=== PATIENT | female | born 1990 | race Caucasian/White ===

== ENCOUNTER 2018-03-16 10:07 | Inpatient (IN) | END 2018-03-24 19:45 | disposition home or self-care (01) | DRG 766 ==

== ENCOUNTER 2018-12-13 15:24 | Observation (INO) | payer MEDICAID ==
[~2018-12-13] VITALS: Ht 162.6 cm; Wt 67.2 kg
[~2018-12-13 15:24] MED LIST: PREN-93 PO
--- NOTE | 2018-12-13 17:56 | ERD ---
ER Documentation Chief Complaint Chief Complaint SOB, palpitations [id number], gen weakness [id number]. denies anxiety. no CP HPI 28-year-old female with a history of HELLP syndrome status post 03/16/2018 presents to the ED complaining of shortness of breath and palpitations. Patient was in her usual health until approximately 1 month ago when she began to experience persistent palpitations and exertional dyspnea. Denies chest pain. No leg pain or swelling. Denies headache, visual changes, focal weakness or numbness. No abdominal pain, nausea or vomiting. No relieving or exacerbating factors. No anorexia, weight loss, night sweats, fevers or chills. Denies anxiety or depression. ROS All systems reviewed and are negative except as per history of present illness. Medications Home Meds Discontinued Reported Medications Vit No.124/Iron/FA ( Vitamin Tablet) 1 Each Tablet, 1 EACH PO DAILY, TAB 03/16/18 Allergies Allergies: Coded Allergies: acetaminophen (Unverified Allergy, Intermediate, RASH, 12/13/18) PMhx/Soc Reviewed in chart. As per HPI. History of Surgery: Yes (S/p ) Anesthesia Reaction: No Hx Neurological Disorder: No Hx Respiratory Disorders: No Hx Cardiac Disorders: No Hx Psychiatric Problems: No Hx Miscellaneous Medical Probl: Yes (HELLP syndrome) Hx Alcohol Use: No Hx Substance Use: No Hx Tobacco Use: No FmHx No stroke or cancer Physical Exam Vitals Vital Signs Date Temp Pulse Resp B/P (MAP) Pulse Ox O2 O2 Flow FiO2 Time Delivery Rate 12/13/18 98.7 114 15 142/91 99 Room Air 20:30 (108) 12/13/18 98.7 107 15 139/65 99 Room Air 18:30 (89) 12/13/18 98.7 145 22 154/88 99 15:27 (110) Physical Exam Const: Alert, moderate distress. Head: Atraumatic Eyes: Pupils equal reactive to light, extraocular movements are intact. Normal Conjunctiva. No nystagmus. ENT: Normal External Ears, Nose and Mouth. Neck: Full range of motion. No JVD. No meningismus. Resp: Breath sounds are equal and clear to auscultation bilaterally Cardio: Tachycardic. Regular rate and rhythm, no murmurs, gallops or rubs. Abd: Soft, non tender, non distended. Normal bowel sounds Skin: No petechiae or rashes Back: No midline or flank tenderness Ext: No cyanosis, or edema. No calf swelling or tenderness. Neur: Awake and alert. No focal deficit observed. Psych: Normal Mood and Affect. Patient does not appear anxious or depressed. Result Diagram: 12/14/18 0505 12/14/18 0505 Results 24 hrs Laboratory Tests Test 12/13/18 18:22 12/13/18 18:28 12/13/18 20:58 Thyroid Stimulating < 0.015 MIU/L < 0.015 MIU/L Hormone (TSH) White Blood Count 6.9 10^3/ul Red Blood Count 4.57 10^6/ul Hemoglobin 13.8 g/dl Hematocrit 41.2 % Mean Corpuscular Volume 90.2 fl Mean Corpuscular Hemoglobin 30.2 pg Mean Corpuscular 33.5 g/dl Hemoglobin Concent Red Cell Distribution Width 11.3 % Platelet Count 241 10^3/UL Mean Platelet Volume 10.8 fl Immature Granulocytes % 0.100 % Neutrophils % 64.0 % Lymphocytes % 23.7 % Monocytes % 11.5 % Eosinophils % 0.4 % Basophils % 0.3 % Nucleated Red Blood Cells % 0.0 /100WBC Immature Granulocytes # 0.010 10^3/ul Neutrophils # 4.4 10^3/ul Lymphocytes # 1.6 10^3/ul Monocytes # 0.8 10^3/ul Eosinophils # 0.0 10^3/ul Basophils # 0.0 10^3/ul Nucleated Red Blood Cells # 0.0 10^3/ul Sodium Level 143 mmol/L Potassium Level 3.6 mmol/L Chloride Level 103 mmol/L Carbon Dioxide Level 27 mmol/L Anion Gap 13 Blood Urea Nitrogen 11 mg/dl Creatinine 0.29 mg/dl Est Glomerular Filtrat > 60 mL/min Rate mL/min Glucose Level 106 mg/dl Calcium Level 9.3 mg/dl Total Bilirubin 0.5 mg/dl Direct Bilirubin 0.00 mg/dl Indirect Bilirubin 0.5 mg/dl Aspartate Amino 38 IU/L Transf (AST/SGOT) Alanine 47 IU/L Aminotransferase (ALT/SGPT) Alkaline Phosphatase 83 IU/L Creatine Kinase 69 IU/L Creatine Kinase Index 0.8 Creatinine Kinase MB (Mass) 0.52 ng/ml Troponin I < 0.012 ng/ml B-Type Natriuretic Peptide 220 PG/ML Total Protein 7.4 g/dl Albumin 4.0 g/dl Globulin 3.40 g/dl Albumin/Globulin Ratio 1.17 Free Thyroxine Index 13.94 ug/ml Thyroxine (T4) > 24.9 ug/dl Triiodothyronine (T3) Uptake 56.0 % Current Medications Medications Dose Sig/Mike Start Time Status Last (Trade) Ordered Route PRN Stop Time Admin Dose Reason Admin IV Flush 10 ml STK-MED 12/13/18 DC 12/13/18 (NS 10 ml) ONCE .ROUTE 19:51 20:04 12/13/18 19:52 Sodium 100 ml @ ud STK-MED 12/13/18 DC 12/13/18 Chloride ONCE .ROUTE 19:51 20:04 12/13/18 19:52 Iohexol 150 ml STK-MED 12/13/18 DC 12/13/18 (Omnipaque ONCE .ROUTE 19:51 20:05 300mg/ ml) 12/13/18 19:52 Iohexol 100 ml @ ud STK-MED 12/13/18 DC ONCE .ROUTE 19:51 12/13/18 19:52 Sodium 500 ml @ Q1H STAT 12/13/18 DC 12/13/18 Chloride 500 mls/hr IV 21:29 21:42 12/13/18 22:28 Procedures/MDM DOCUMENTS REVIEWED: ED nurse, prior records EKG: Time: 1531. Sinus tachycardia. Ventricular rate 130. Normal UT and QRS. No acute ST segment elevation depression. No ectopy. My Interpretation IMAGING: Chest AP portable. The cardiac silhouette is normal. The costophrenic angles are clear. No acute infiltrates. CT pulmonary angiogram: No evidence of pulmonary embolism. Venous Doppler lower extremities are negative for deep venous thrombosis. MEDICAL DECISION MAKIN-year-old female with a history of HELLP syndrome status post 03/16/2018 presents to the ED complaining of shortness of breath and palpitations. CBC to evaluate for anemia, leukocytosis and thrombocytopenia is unremarkable. Chemistry reveals no evidence of electrolyte abnormalities or renal insufficiency. Chest x-ray to evaluate for effusion, infiltrate and congestive heart failure was negative. CT pulmonary angiogram is negative for pulmonary embolism. Venous Doppler lower extremity negative for deep vein thrombosis. EKG reveals sinus tachycardia without ischemic changes. TSH is undetectable consistent with hyperthyroidism. Presentation consistent with thyrotoxicosis without signs of thyroid storm. Methimazole and propanolol ordered by the admitting physician. Admit to telemetry for further evaluation and management. PATIENT CARE TRANSITIONED: Time: 22:24, Dr. Scherer Counseled patient regarding diagnosis, diagnostic results and plan for admission. Departure Diagnosis: Primary Impression: Palpitations Additional Impressions: Thyrotoxicosis Thyrotoxicosis type: unspecified thyrotoxicosis type Thyrotoxic crisis or storm presence: without thyrotoxic crisis or storm Qualified Codes: E05.90 - Thyrotoxicosis, unspecified without thyrotoxic crisis or storm Hyperthyroidism Condition: Serious STEF QIU MD Dec 13, 2018 17:56
[2018-12-13] MEDS ORDERED: IOHEXOL 100 ML ONE (19:51)
[2018-12-13] MEDS ORDERED: SOD CHLORIDE 0.9% 100 ML ONE (19:51)
[2018-12-13] MEDS ORDERED: IOHEXOL 300MG/ML 150 ML BTL ONE (19:51)
[2018-12-13] MEDS ORDERED: SOD CHLORIDE 0.9% 500 ML IV STA (21:29)
[2018-12-13] MEDS ORDERED: ONDANSETRON 4 MG INJ IV PRN ×2 (22:30→23:00)
[2018-12-13] MEDS ORDERED: METHIMAZOLE 5 MG TAB PO STA (22:40)
--- NOTE | 2018-12-13 22:50 | HP ---
Date/Time of Note Date/Time of Note DATE: 12/13/18 TIME: 22:50 Assessment/Plan VTE Prophylaxis Pharmacological prophylaxis: LMWH Lines/Catheters IV Catheter Type (from Nrs): Saline Lock Assessment/Plan Assessment/Plan 28-year-old female with palpitations of 1 months duration secondary to thyrotoxicosis PLAN Will start patient on propranolol and methimazole Check free T4 Thyroid ultrasound Endocrinology consult Result Diagram: 12/13/18182712/13/188 Results 24hrs Laboratory Tests Test 12/13/18 18:22 12/13/18 18:28 Thyroid Stimulating Hormone (TSH) < 0.015 L White Blood Count 6.9 # Red Blood Count 4.57 # Hemoglobin 13.8 # Hematocrit 41.2 # Mean Corpuscular Volume 90.2 Mean Corpuscular Hemoglobin 30.2 Mean Corpuscular Hemoglobin Concent 33.5 Red Cell Distribution Width 11.3 #L Platelet Count 241 # Mean Platelet Volume 10.8 H Immature Granulocytes % 0.100 Neutrophils % 64.0 Lymphocytes % 23.7 Monocytes % 11.5 H Eosinophils % 0.4 Basophils % 0.3 Nucleated Red Blood Cells % 0.0 Immature Granulocytes # 0.010 Neutrophils # 4.4 Lymphocytes # 1.6 Monocytes # 0.8 Eosinophils # 0.0 Basophils # 0.0 Nucleated Red Blood Cells # 0.0 Sodium Level 143 Potassium Level 3.6 Chloride Level 103 Carbon Dioxide Level 27 Anion Gap 13 Blood Urea Nitrogen 11 Creatinine 0.29 L Est Glomerular Filtrat Rate mL/min > 60 Glucose Level 106 Calcium Level 9.3 Total Bilirubin 0.5 Direct Bilirubin 0.00 Indirect Bilirubin 0.5 Aspartate Amino Transf (AST/SGOT) 38 Alanine Aminotransferase (ALT/SGPT) 47 Alkaline Phosphatase 83 Creatine Kinase 69 Creatine Kinase Index 0.8 Creatinine Kinase MB (Mass) 0.52 Troponin I < 0.012 B-Type Natriuretic Peptide 220 H Total Protein 7.4 Albumin 4.0 Globulin 3.40 H Albumin/Globulin Ratio 1.17 HPI/ROS Admit Date/Time Admit Date/Time Hx of Present Illness This is a 28-year-old female with a history of help syndrome diagnosed in February of last year status post who presented to ER with palpitations over 1 months duration. Denies chest pain. When presented to ER, heart rate was 145. Labs shows undetectable TSH. PMH/Family/Social Past Medical History Medical History: other Medications Current Medications Ondansetron HCl (Zofran Inj) 4 mg ER BRIDGE PRN IV NAUSEA AND/OR VOMITING; Start 12/13/18 at 22:30; Stop 12/14/18 at 22:29 IV Flush (NS 3 ml) 3 ml PER PROTOCOL IV ; Start 12/13/18 at 23:00; Status UNV Ondansetron HCl (Zofran Inj) 4 mg Q6H PRN IV NAUSEA AND/OR VOMITING; Start 12/13/18 at 23:00; Status UNV Methimazole (Tapazole) 10 mg ONCE STAT PO ; Start 12/13/18 at 22:40; Stop 12/13/18 at 22:41; Status UNV Propranolol HCl (Inderal) 20 mg ONCE ONCE PO ; Start 12/13/18 at 23:00; Stop 12/13/18 at 23:01; Status UNV Coded Allergies: acetaminophen (Unverified Allergy, Intermediate, RASH, 12/13/18) Past Surgical History Past Surgical Hx: other Family History Significant Family History: no pertinent family hx Social History Alcohol Use: other Smoking Status: Unknown if ever smoked Drug Use: other Exam/Review of Systems Vital Signs Vitals Vital Signs Date Temp Pulse Resp B/P (MAP) Pulse Ox O2 O2 Flow FiO2 Time Delivery Rate 12/13/18 98.7 104 19 132/70 100 Room Air 22:35 (90) Exam Constitutional: alert, oriented, well developed, other Head: normocephalic, atraumatic Respiratory: normal air movement Cardiovascular: regular rate and rhythm Gastrointestinal: soft Extremities: normal pulses AGNES SOW MD Dec 13, 2018 22:50
[2018-12-13] MEDS ORDERED: PROPRANOLOL 20 MG TAB PO ONE (23:00)
[2018-12-13] MEDS ORDERED: NACL 0.9% 3 ML SYG IV SCH (23:00)
[2018-12-14] VITALS (11 sets, daily range): BP systolic 118–149; BP diastolic 62–77; PULSE 87–110; RESP 16–20; Ht 162.6 cm; Wt 67.2 kg
--- NOTE | 2018-12-14 14:36 | PN ---
Date/Time of Note Date/Time of Note DATE: 12/14/18 TIME: 14:23 Assessment/Plan VTE Prophylaxis Risk score (from Ns)>0 risk: 0 SCD applied (from Ns): Yes Pharmacological prophylaxis: other Pharm contraindication: low risk/ambulating Lines/Catheters IV Catheter Type (from Nrs): Saline Lock Urinary Cath still in place: No Assessment/Plan Assessment/Plan 1. Hyperthyroidism, consider Grave's disease, follow up with endocrinology 2. Sinus tachycardia, hyperthyroidism related, on Inderal Result Diagram: 12/14/18 0505 12/14/18 0505 Results 24hrs Laboratory Tests Test 12/13/18 18:22 12/13/18 18:28 12/13/18 20:58 12/14/18 05:05 Thyroid Stimulating < 0.015 L < 0.015 L Hormone (TSH) White Blood Count 6.9 # 6.0 Red Blood Count 4.57 # 4.37 Hemoglobin 13.8 # 13.2 Hematocrit 41.2 # 39.8 Mean Corpuscular 90.2 91.1 Volume Mean Corpuscular 30.2 30.2 Hemoglobin Mean Corpuscular 33.5 33.2 Hemoglobin Concent Red Cell 11.3 #L 11.3 L Distribution Width Platelet Count 241 # 226 Mean Platelet Volume 10.8 H 11.7 H Immature 0.100 0.500 H Granulocytes % Neutrophils % 64.0 53.4 Lymphocytes % 23.7 30.7 Monocytes % 11.5 H 13.7 H Eosinophils % 0.4 1.5 Basophils % 0.3 0.2 Nucleated Red Blood 0.0 0.0 Cells % Immature 0.010 0.030 Granulocytes # Neutrophils # 4.4 3.2 Lymphocytes # 1.6 1.8 Monocytes # 0.8 0.8 Eosinophils # 0.0 0.1 Basophils # 0.0 0.0 Nucleated Red Blood 0.0 0.0 Cells # Sodium Level 143 140 Potassium Level 3.6 4.7 Chloride Level 103 105 Carbon Dioxide Level 27 23 Anion Gap 13 12 Blood Urea Nitrogen 11 10 Creatinine 0.29 L 0.30 L Est Glomerular > 60 > 60 Filtrat Rate mL/min Glucose Level 106 81 Calcium Level 9.3 9.9 Total Bilirubin 0.5 1.1 Direct Bilirubin 0.00 0.00 Indirect Bilirubin 0.5 1.1 Aspartate Amino 38 47 H Transf (AST/SGOT) Alanine 47 45 Aminotransferase (AL T/SGPT) Alkaline Phosphatase 83 61 Creatine Kinase 69 Creatine Kinase 0.8 Index Creatinine Kinase MB 0.52 (Mass) Troponin I < 0.012 B-Type Natriuretic 220 H Peptide Total Protein 7.4 6.6 Albumin 4.0 3.5 Globulin 3.40 H 3.10 Albumin/Globulin 1.17 1.12 Ratio Free Thyroxine Index 13.94 H Thyroxine (T4) > 24.9 H Triiodothyronine 56.0 H (T3) Uptake Magnesium Level 1.8 Triglycerides Level 69 Cholesterol Level 122 LDL Cholesterol, 71 Calculated HDL Cholesterol 37 Cholesterol/HDL 3.2 Ratio Subjective 24 Hr Interval Summary Free Text/Dictation less palpitation Exam/Review of Systems Vital Signs Vitals Vital Signs Date Temp Pulse Resp B/P (MAP) Pulse Ox O2 O2 Flow FiO2 Time Delivery Rate 12/14/18 100 12:41 12/14/18 98.2 18 149/77 97 11:35 (101) 12/14/18 Room Air 04:38 Intake and Output 12/13/18 12/13/18 12/14/18 1515:00 23:00 07:00 IntakeIntake Total 0 ml BalanceBalance 0 ml Exam Constitutional: alert, oriented, well developed Psych: no complaints, nl mood/affect Head: normocephalic, atraumatic Eyes: nl conjunctiva, EOMI, nl lids ENMT: nl external ears & nose, nl lips & teeth, nl nasal mucosa & septum Neck: supple, non-tender Respiratory: clear to auscultation, normal air movement; No congested cough, No crackles/rales, No diminished breath sounds, No intercostal retraction, No labored breathing, No respirations, No tactile fremitus, No wheezing, No other Cardiovascular: regular rate and rhythm, nl pulses; No bruits, No diastolic murmur, No edema, No gallop, No irregular rhythm, No jugular venous distention (JVD), No murmurs/extra sounds, No rub, No systolic murmur, No S3, No S4, No other Gastrointestinal: soft, nl liver, spleen Musculoskeletal: nl extremities to inspection, nl gait and stance; No joint tenderness, No muscle tone, No muscle weakness, No range of motion, No spine non-tender, No swelling, No other Extremities: normal pulses; No calf tenderness, No cyanosis, No clubbing, No edema, No pitting pedal edema, No palpable cord, No tenderness, No other Neurological: SPECIAL EDUCATION PARAPROFESSIONAL II-XII intact, nl mental status, nl speech, nl strength Skin: nl turgor Medications Medications Current Medications Ondansetron HCl (Zofran Inj) 4 mg ER BRIDGE PRN IV NAUSEA AND/OR VOMITING; Start 12/13/18 at 22:30; Stop 12/14/18 at 22:29 IV Flush (NS 3 ml) 3 ml PER PROTOCOL IV ; Start 12/13/18 at 23:00 Ondansetron HCl (Zofran Inj) 4 mg Q6H PRN IV NAUSEA AND/OR VOMITING; Start 12/13/18 at 23:00 FATOU CEVALLOS MD Dec 14, 2018 14:34
--- NOTE | 2018-12-14 15:18 | CONS ---
Date/Time of Note Date/Time of Note DATE: 12/14/18 TIME: 15:09 Assessment/Plan Assessment/Plan Problems: (1) Palpitations Status: Acute Comment: Propanolol 10 mg qid to goal HR of 80-100 bpm. Ok for d/c when cleared by primary team. (2) Hyperthyroidism Status: Acute Comment: Methimazole 20 mg po daily. Ok for d/c when cleared by primary team. (3) Graves disease Status: Chronic Comment: The diagnosis is clearly Graves disease. Ultrasound showing only heterogeneous gland, no nodules. No glandular tenderness or pain. Antibody studies are unnecessary at this point to make the diagnosis. Pt. should be followed at regular intervals as outpatient to monitor thyroid function and have methimazole dose weaned. If after 2 years the disease has not gone into remission, would then plan definitive therapy (surgery vs. radioactive iodine). Result Diagram: 12/14/18 0505 12/14/18 0505 Results 24hrs Laboratory Tests Test 12/13/18 18:22 12/13/18 18:28 12/13/18 20:58 12/14/18 05:05 Thyroid Stimulating < 0.015 L < 0.015 L Hormone (TSH) White Blood Count 6.9 # 6.0 Red Blood Count 4.57 # 4.37 Hemoglobin 13.8 # 13.2 Hematocrit 41.2 # 39.8 Mean Corpuscular 90.2 91.1 Volume Mean Corpuscular 30.2 30.2 Hemoglobin Mean Corpuscular 33.5 33.2 Hemoglobin Concent Red Cell 11.3 #L 11.3 L Distribution Width Platelet Count 241 # 226 Mean Platelet Volume 10.8 H 11.7 H Immature 0.100 0.500 H Granulocytes % Neutrophils % 64.0 53.4 Lymphocytes % 23.7 30.7 Monocytes % 11.5 H 13.7 H Eosinophils % 0.4 1.5 Basophils % 0.3 0.2 Nucleated Red Blood 0.0 0.0 Cells % Immature 0.010 0.030 Granulocytes # Neutrophils # 4.4 3.2 Lymphocytes # 1.6 1.8 Monocytes # 0.8 0.8 Eosinophils # 0.0 0.1 Basophils # 0.0 0.0 Nucleated Red Blood 0.0 0.0 Cells # Sodium Level 143 140 Potassium Level 3.6 4.7 Chloride Level 103 105 Carbon Dioxide Level 27 23 Anion Gap 13 12 Blood Urea Nitrogen 11 10 Creatinine 0.29 L 0.30 L Est Glomerular > 60 > 60 Filtrat Rate mL/min Glucose Level 106 81 Calcium Level 9.3 9.9 Total Bilirubin 0.5 1.1 Direct Bilirubin 0.00 0.00 Indirect Bilirubin 0.5 1.1 Aspartate Amino 38 47 H Transf (AST/SGOT) Alanine 47 45 Aminotransferase (AL T/SGPT) Alkaline Phosphatase 83 61 Creatine Kinase 69 Creatine Kinase 0.8 Index Creatinine Kinase MB 0.52 (Mass) Troponin I < 0.012 B-Type Natriuretic 220 H Peptide Total Protein 7.4 6.6 Albumin 4.0 3.5 Globulin 3.40 H 3.10 Albumin/Globulin 1.17 1.12 Ratio Free Thyroxine Index 13.94 H Thyroxine (T4) > 24.9 H Triiodothyronine 56.0 H (T3) Uptake Magnesium Level 1.8 Triglycerides Level 69 Cholesterol Level 122 LDL Cholesterol, 71 Calculated HDL Cholesterol 37 Cholesterol/HDL 3.2 Ratio Consultation Date/Type/Reason Admit Date/Time 12/13/2018 @ 2200 Date of Consultation: Dec 14, 2018 Type of Consult Endocrinology Reason for Consultation Thyrotoxicosis Requesting Provider: TALA GASTON MD Hx of Present Illness 28 y/o H F w/ h/o preeclampsia in [facility] until 1 m. ago when she began to experience palpitations, tremors, sweats. (+) weight loss but only a few pounds. (+) intermittent insomnia. Yesterday w/ increasing feeling of heart racing and SOB. Came to ER where HR was in 140's. Found to be in thyrotoxicosis w/ TSH < 0.01 and TT4 > upper limit of detection. Rec'ed single dose methimazole 10 mg and propranolol 20 mg and was admitted. Constitutional: no complaints, diaphoresis Eyes: no complaints ENT: no complaints Respiratory: shortness of breath Cardiovascular: palpitations Gastrointestinal: no complaints Genitourinary: no complaints Musculoskeletal: no complaints Neurologic: other (tremors) Endocrine: temp intolerance (heat intolerance) Past Medical History Medical History: other (HELLP syndrome) Medications Current Medications Ondansetron HCl (Zofran Inj) 4 mg ER BRIDGE PRN IV NAUSEA AND/OR VOMITING; Start 12/13/18 at 22:30; Stop 12/14/18 at 22:29 IV Flush (NS 3 ml) 3 ml PER PROTOCOL IV ; Start 12/13/18 at 23:00 Ondansetron HCl (Zofran Inj) 4 mg Q6H PRN IV NAUSEA AND/OR VOMITING; Start 12/13/18 at 23:00 Methimazole (Tapazole) 20 mg DAILY PO ; Start 12/14/18 at 14:30 Propranolol HCl (Inderal) 10 mg QID PO ; Start 12/14/18 at 17:00 Allergies: Coded Allergies: acetaminophen (Unverified Allergy, Intermediate, RASH, 12/13/18) Past Surgical History Past Surgical Hx: other () Family History Significant Family History: vascular disease (stroke in mother) Social History b. Zafar, [place], in [facility] 9 y, unemployed, has common-law partner, 2 children Alcohol Use: rarely Smoking Status: Never smoker Drug Use: none Exam/Review of Systems Vital Signs Vitals VS - Last 72 Hours, by Label Date Temp Pulse Resp B/P (MAP) Pulse Ox O2 O2 Flow FiO2 Time Delivery Rate 12/14/18 100 12:41 12/14/18 98.2 110 18 149/77 97 11:35 (101) 12/14/18 92 08:25 12/14/18 98.1 91 18 118/66 99 07:45 (83) 12/14/18 98.1 94 16 126/62 96 Room Air 04:38 (83) 12/14/18 108 04:00 12/14/18 98.1 93 16 131/67 98 Room Air 01:25 (88) 12/14/18 90 01:01 12/14/18 97 20 96/58 (71) 99 Room Air 00:43 12/13/18 98.7 104 19 132/70 100 Room Air 22:35 (90) 12/13/18 98.7 114 15 142/91 99 Room Air 20:30 (108) 12/13/18 98.7 107 15 139/65 99 Room Air 18:30 (89) 12/13/18 98.7 145 22 154/88 99 15:27 (110) Vital Signs Date Temp Pulse Resp B/P (MAP) Pulse Ox O2 O2 Flow FiO2 Time Delivery Rate 12/14/18 100 12:41 12/14/18 98.2 18 149/77 97 11:35 (101) 12/14/18 Room Air 04:38 Intake and Output 12/13/18 12/13/18 12/14/18 1515:00 23:00 07:00 IntakeIntake Total 0 ml BalanceBalance 0 ml Exam Constitutional: alert, oriented, well developed Psych: no complaints, nl mood/affect Eyes: nl conjunctiva, EOMI, nl lids, nl sclera, PERRL ENMT: nl external ears & nose, mucosa pink and moist Neck: supple, non-tender, bruits, thyromegaly; No masses Respiratory: clear to auscultation, normal air movement Cardiovascular: regular rate and rhythm, nl pulses; No edema, No murmurs/extra sounds, No rub Gastrointestinal: soft, nl liver, spleen, non-tender, bowel sounds; No mass, No rebound or guarding Musculoskeletal: nl extremities to inspection Extremities: normal pulses; No cyanosis, No clubbing, No edema Neurological: other ((+) tremor) Medications Medications Current Medications Ondansetron HCl (Zofran Inj) 4 mg ER BRIDGE PRN IV NAUSEA AND/OR VOMITING; Start 12/13/18 at 22:30; Stop 12/14/18 at 22:29 IV Flush (NS 3 ml) 3 ml PER PROTOCOL IV ; Start 12/13/18 at 23:00 Ondansetron HCl (Zofran Inj) 4 mg Q6H PRN IV NAUSEA AND/OR VOMITING; Start 12/13/18 at 23:00 Methimazole (Tapazole) 20 mg DAILY PO ; Start 12/14/18 at 14:30 Propranolol HCl (Inderal) 10 mg QID PO ; Start 12/14/18 at 17:00 JEANCARLOS HEARN MD Dec 14, 2018 15:18
[2018-12-14] MEDS: METHIMAZOLE 5 MG TAB PO SCH (15:44)
[2018-12-14] MEDS: PROPRANOLOL 10 MG TAB PO SCH ×2 (16:30→20:25)
[2018-12-15] VITALS: BP 119/58; PULSE 90; PULSE 93; RESP 20
[2018-12-15 04:00] VITALS: BP 116/57; PULSE 85; PULSE 93; RESP 20
[2018-12-15 07:38] VITALS: BP 119/59; PULSE 85; RESP 18
[2018-12-15 08:00] VITALS: PULSE 97
[2018-12-15] MEDS: METHIMAZOLE 5 MG TAB PO SCH (09:10)
[2018-12-15] MEDS: PROPRANOLOL 10 MG TAB PO SCH ×2 (09:10→13:11)
[2018-12-15 11:09] VITALS: BP 120/56; PULSE 78; RESP 18
[2018-12-15 12:00] VITALS: PULSE 82
[2018-12-15] MEDS ORDERED: METH-493 PO (12:18)
[2018-12-15] MEDS ORDERED: PROP10TA6 PO (12:18)
--- NOTE | 2018-12-15 12:48 | PDOCDIS ---
Discharge Instructions DIAGNOSIS Discharge Diagnosis Graves disease/hyperthyroidism CONDITION [id number] Patient Condition: [id number] Stable FOLLOW UP/APPOINTMENTS Follow-up Plan Make an appointment to see a doctor in the next month. It is important to have your thyroid levels checked. Take your medications everyday as prescribed. Return to the hospital if you have any concerning symptoms ANGELES MORRIS MD Dec 15, 2018 12:48
--- NOTE | 2018-12-15 12:57 | DS ---
Date/Time of Note Date/Time of Note DATE: 12/15/18 TIME: 12:55 Discharge Summary Admission/Discharge Info Admit Date/Time Dec 13, 2018 at 22:26 Discharge Date/Time Discharge Diagnosis Graves disease/hyperthyroidism Patient Condition: Stable Hospital Course Patient with tachycarida and SOB. CT-A of chest was performed and normal. Found to be in hyperthyroid state. Started on methimazole and propranolol and symptoms improved. She was seen by endocrinology who diagnosed Graves disease. She was encouraged to continue propranolol and methimazole as an outpatient and follow up at [facility]. Home Meds Discontinued Reported Medications Vit No.124/Iron/FA ( Vitamin Tablet) 1 Each Tablet, 1 EACH PO DAILY, TAB 03/16/18 Follow-up Plan Make an appointment to see a doctor in the next month. It is important to have your thyroid levels checked. Take your medications everyday as prescribed. Return to the hospital if you have any concerning symptoms Primary Care Provider Not On Staff Doctor Pending Labs Laboratory Tests Test 12/15/18 04:53 White Blood Count 5.9 10^3/ul (4.8-10.8) Red Blood Count 4.20 10^6/ul (4.20-5.40) Hemoglobin 12.8 g/dl (12.0-16.0) Hematocrit 38.4 % (37.0-47.0) Mean Corpuscular Volume 91.4 fl (82.0-101.0) Mean Corpuscular Hemoglobin 30.5 pg (29.0-33.0) Mean Corpuscular Hemoglobin Concent 33.3 g/dl (32.0-37.0) Red Cell Distribution Width 11.2 % (11.5-14.5) Platelet Count 231 10^3/UL (140-415) Mean Platelet Volume 11.7 fl (7.4-10.4) Immature Granulocytes % 0.200 % (0.001-0.429) Neutrophils % 46.0 % (39.0-77.0) Lymphocytes % 36.4 % (15.0-51.0) Monocytes % 15.2 % (0.0-11.0) Eosinophils % 2.0 % (0.0-7.0) Basophils % 0.2 % (0.0-2.0) Nucleated Red Blood Cells % 0.0 /100WBC (0.0-0.0) Immature Granulocytes # 0.010 10^3/ul (0.0-0.031) Neutrophils # 2.7 10^3/ul (1.6-7.5) Lymphocytes # 2.2 10^3/ul (0.8-2.9) Monocytes # 0.9 10^3/ul (0.3-0.9) Eosinophils # 0.1 10^3/ul (0.0-0.5) Basophils # 0.0 10^3/ul (0.0-0.1) Nucleated Red Blood Cells # 0.0 10^3/ul (0.0-0.0) Sodium Level 143 mmol/L (135-144) Potassium Level 4.3 mmol/L (3.5-5.1) Chloride Level 105 mmol/L (97-110) Carbon Dioxide Level 28 mmol/L (21-31) Anion Gap 10 (5-13) Blood Urea Nitrogen 14 mg/dl (7-20) Creatinine 0.35 mg/dl (0.44-1.00) Est Glomerular Filtrat Rate mL/min > 60 mL/min (>60) Glucose Level 104 mg/dl (70-220) Calcium Level 9.6 mg/dl (8.4-10.2) Phosphorus Level 5.1 mg/dl (2.5-4.9) Magnesium Level 1.7 mg/dl (1.7-2.5) ANGELES MORRIS MD Dec 15, 2018 12:57
[2019-01-02] MEDS ORDERED: PRED20TA PO (15:41)
[2019-01-02] MEDS ORDERED: FAMO-96 PO (15:41)
[2019-01-02] MEDS ORDERED: BEN25 PO (15:42)
== END 2018-12-15 14:10 | disposition home or self-care (01) ==
LOC: E/R 15:24 → 6WM 22:26
PROVIDERS: ADMIT Internal Medicine; ATTEND Internal Medicine
DX: E05.00 Thyrotoxicosis with diffuse goiter without thyrotoxic crisis or storm (principal)
CPT/HCPCS: 36415; 71045; 71275; 76536; 80048; 80053; 80061; 82550; 82553; 83735; 83880; 84100; 84436; 84443; 84479; 84484; 85025; 93005; 93970; J7040; Q9967; Z7500; Z7502; Z7610; G0378